=== PATIENT | female | born 1975 | race Caucasian/White ===

== ENCOUNTER → 2020-10-21 | Outpatient (CLI) | payer OTHER ==
[~2020-10-21] MED LIST: NORCO 5-325 TA1 EACH PO; PAXIL10 MG PO
== END ==
LOC: MRI 09:48
PROVIDERS: ATTEND Family Medicine
DX: S83.282A Other tear of lateral meniscus, current injury, left knee, initial encounter (principal); M25.462 Effusion, left knee; M94.262 Chondromalacia, left knee; M71.22 Synovial cyst of popliteal space [Baker], left knee; M25.78 Osteophyte, vertebrae; X58.XXXA Exposure to other specified factors, initial encounter; Y93.89 Activity, other specified; Y92.89 Other specified places as the place of occurrence of the external cause; Y99.8 Other external cause status

== ENCOUNTER → 2021-03-11 | Outpatient (CLI) | payer OTHER | LOC: BC 14:18 | PROVIDERS: ATTEND Family Medicine | DX: Z12.31 Encounter for screening mammogram for malignant neoplasm of breast (principal); N64.89 Other specified disorders of breast ==

== ENCOUNTER → 2021-03-17 | Outpatient (CLI) | payer OTHER | LOC: RAD 12:40 | PROVIDERS: ATTEND Family Medicine | DX: R92.8 Other abnormal and inconclusive findings on diagnostic imaging of breast (principal) ==

== ENCOUNTER → 2021-04-18 | Outpatient (CLI) | payer OTHER ==
--- NOTE | 2021-04-21 16:37 | SLE ---
[facility] [place] [address] POLYSOMNOGRAPHY STUDY Name: ANDREW RAHMAN Room #: REG ANTHONY OdonnellAnali#: [id number] Admission: 04/18/21 Attend Phys: Khurram Walker MD Discharge: Date of : 75 Report #: [id number] THIS REPORT FOR: cc: Tenzin Varghese James A. DO Khan, Aman U. MD ~ cc: Gabo Hendrickson MD DATE OF SERVICE: 04/18/2021 SLEEP STUDY ATTENDING PHYSICIAN: Dr. Gabo Hendrickson. The patient is 46 years old who weighs 306 pounds with a BMI of 50.9. The patient's Barnett score was 11. The patient underwent a diagnostic sleep study performed at [facility]. During the night study, the patient spent 424 minutes in bed and slept for 394 minutes with a sleep efficiency of 93%. Sleep latency was 1.4 minutes with a REM latency of 67 minutes. Sleep architecture showed increased stage 1 and stage 2 sleep, normal slow wave and normal REM sleep. During the night of the study, the patient had 1 obstructive apnea. No mixed or central apneas were seen. The patient had 14 hypopneas. The patient's AHI was 2.3 per hour with a REM AHI of 5.9 per hour. Supine AHI was 3.7 per hour. EKG monitoring revealed an average heart rate of 78 beats per minute. No arrhythmias observed. PLMs were seen at an index of 12 per hour and 1 per hour caused EEG arousals. Nocturnal oximetry study revealed an average oxygen saturation of 95% with a lowest of 89%. Due to low AHI, the patient did not meet the split night criteria for CPAP initiation. IMPRESSION: 1. No clinically significant sleep disorder breathing. The patient's AHI for the entire night was 2.3 per hour. 2. No clinically significant nocturnal hypoxia. 3. No clinically significant periodic limb movements. RECOMMENDATIONS: 1. The patient did not meet the split night criteria for CPAP initiation due to [facility] [address] [place] [address] POLYSOMNOGRAPHY STUDY Name: ANDREW RAHMAN Room #: REG [facility]#: [id number] Admission: 04/18/21 Attend Phys: Khurram Walker MD Discharge: Date of : 75 Report #: [id number] low AHI. 2. Weight loss to the ideal body weight is recommended. 3. Avoid [employer] depressants. 4. Cautioned regarding driving when sleepy or sleep deprived. <ELECTRONICALLY SIGNED> By: Khurram Walker MD 04/21/21 [id number] Khurram Walker MD /nt
== END ==
LOC: SLEEPLAB 16:04
PROVIDERS: ATTEND Internal Medicine Critical Care Medicine
DX: G47.30 Sleep apnea, unspecified (principal); Z20.822 Contact with and (suspected) exposure to COVID-19